=== PATIENT | female | born 1955 | race Caucasian/White ===

== ENCOUNTER 2017-06-17 07:57 | Emergency (ER) | payer BC ==
[2017-06-17 08:22] LABS: #Basophils 0.2 thou/uL (0.0-0.2); #Lymphocytes 0.7 thou/uL (1.20-3.40); #Monocytes 1.1 thou/uL (0.11-0.59); #Neutrophils 8.5 thou/uL (1.40-6.50); %Basophils 1.6 % (0.0-1.0); %Lymphocytes 6.4 % (21.0-51.0); %Monocytes 10.3 % (0.0-10.0); %Neutrophils 81.7 % (42.0-75.0); Hemoglobin 14.2 g/dL (12.0-16.0); Mean Corpuscular HGB CONC 34.2 g/dL (32.0-36.0); Mean Corpuscular Hemoglobin 31.8 pg (27.0-31.0); Mean Corpuscular Volume 92.9 fl (81.0-99.0); Mean Platelet Volume 6.9 fL (7.4-10.4); Platelet Count 286 thou/uL (130-400); Red Blood Cell (RBC) Count 4.48 mill/uL (4.20-5.40); White Blood Cell (WBC) Count 10.4 thou/uL (4.8-10.8)
[2017-06-17] MEDS ORDERED: Acetaminophen 500 MG TAB ONE (08:38)
[2017-06-17 08:39] LABS: ALT (SGPT) 30 U/L (8-55); AST (SGOT) 62 U/L (5-34); Albumin 4.2 g/dL (3.4-4.8); Alkaline Phosphatase 69 U/L (40-150); Anion Gap 17 mmol/L (10-20); BUN (Urea Nitrogen) 9 mg/dL (9.8-20.1); Bilirubin, Total 0.3 mg/dL (0.2-1.2); Calc. Creatinine Clearance 0 mL/min (70-130); Calcium 8.9 mg/dL (7.8-10.44); Carbon Dioxide 28 mmol/L (23-31); Chloride 85 mmol/L (98-107); Estimated GFR-MDRD 89; Globulin 3.2 g/dL (2.4-3.5); Glucose 121 mg/dL (80-115); Potassium 3.8 mmol/L (3.5-5.1); Protein, Total 7.4 g/dL (6.0-8.3); Sodium 126 mmol/L (136-145)
[2017-06-17] MEDS ORDERED: methylPREDNISolone Sod Succ/PF 125 MG/2 ML VIAL ONE (08:47)
[2017-06-17 09:00] LABS: CKMB 12.3 ng/mL (0-6.6); Troponin I 0.522 ng/mL (< 0.028)
--- NOTE | 2017-06-17 09:28 | RAD ---
CHEST 1 VIEW: Date: 06/17/17 HISTORY: Dyspnea. COMPARISON: Chest radiograph dated 11/25/15. FINDINGS: Interstitial prominence in the lung bases is similar. There appears to be lung hyperinflation and upp er lobe bullous formation. IMPRESSION: No significant change. Increased interstitial markings in the lung bases may be sequelae of scarring. There is upper lobe bullous formation and COPD. POS: [facility]
[2017-06-17] MEDS ORDERED: Piperacillin/Tazobactam 3.375 GM VIAL ONE (10:17)
[2017-06-17] MEDS ORDERED: Sodium Chloride 0.9% 100 ML ONE (10:18)
--- NOTE | 2017-06-17 10:31 | CT ---
CT ANGIOGRAM CHEST WITH CONTRAST: Date: 06/17/17 HISTORY: Dyspnea. COMPARISON: CTA from 2012. TECHNIQUE: CT angiogram of chest performed after the intravenous administration of contrast. 3D rendering provid ed. FINDINGS: No proximal segmental pulmonary arterial filling defect. Pulmonary trunk size is normal. The aortic s ize is nonaneurysmal. Superior mesenteric artery and celiac trunk are both patent. No adenopathy. There are severe emphysematous changes. A few tree-in-bud opacities within the right middle lobe, as well as within the anterior segment right upper lobe. No pneumothorax. No effusion. No acute osseous abnormality. IMPRESSION: 1. No pulmonary embolism. 2. Multifocal right upper lobe and right middle lobe pneumonia. POS: [facility]
== END 2017-06-17 10:30 | disposition short-term general hospital (02) ==
LOC: BURERS 07:57
DX: J44.0 Chronic obstructive pulmonary disease with (acute) lower respiratory infection (principal); J18.9 Pneumonia, unspecified organism; I10 Essential (primary) hypertension; F17.210 Nicotine dependence, cigarettes, uncomplicated; Z79.899 Other long term (current) drug therapy; Z79.82 Long term (current) use of aspirin
CPT/HCPCS: 36415; 71010; 71275; 80053; 82553; 83880; 84484; 85025; 85379; 87040; 93005; 96361; 96374; 96375; J2543; J2930; J7050; J7620

== ENCOUNTER 2018-05-21 10:55 | Inpatient (IN) | payer BC, MEDICARE ==
[2018-05-21 13:09] LABS: ALT (SGPT) 17 U/L (8-55); AST (SGOT) 21 U/L (5-34); Albumin 4.5 g/dL (3.4-4.8); Alkaline Phosphatase 83 U/L (40-150); Anion Gap 15 mmol/L (10-20); BUN (Urea Nitrogen) 5 mg/dL (9.8-20.1); Bilirubin, Total 0.3 mg/dL (0.2-1.2); Calc. Creatinine Clearance 0 mL/min (70-130); Calcium 9.7 mg/dL (7.8-10.44); Carbon Dioxide 30 mmol/L (23-31); Chloride 91 mmol/L (98-107); Estimated GFR-MDRD Greater than 90; Globulin 2.9 g/dL (2.4-3.5); Glucose 132 mg/dL (80-115); Protein, Total 7.4 g/dL (6.0-8.3); Sodium 133 mmol/L (136-145)
[2018-05-21 14:04] LABS: #Basophils 0.2 thou/uL (0.0-0.2); #Monocytes 0.8 thou/uL (0.11-0.59); #Neutrophils 5.5 thou/uL (1.40-6.50); %Basophils 2.4 % (0.0-1.0); %Eosinophils 0.2 % (0.0-10.0); %Lymphocytes 12.9 % (21.0-51.0); %Neutrophils 73.5 % (42.0-75.0); Hemoglobin 15.3 g/dL (12.0-16.0); Mean Corpuscular HGB CONC 35.4 g/dL (32.0-36.0); Mean Corpuscular Hemoglobin 32.2 pg (27.0-31.0); Mean Corpuscular Volume 91.1 fL (78.0-98.0); Mean Platelet Volume 6.5 fL (7.4-10.4); Platelet Count 309 thou/uL (130-400); Red Blood Cell (RBC) Count 4.74 mill/uL (4.20-5.40); White Blood Cell (WBC) Count 7.4 thou/uL (4.8-10.8)
[2018-05-21] MEDS ORDERED: PROVENTIL INHALER 6.7 G (200 INHALATIONS) INH PRN (14:24)
[2018-05-21] MEDS ORDERED: Potassium Chloride 20 MEQ TAB PO SCH (14:30)
--- NOTE | 2018-05-21 17:44 | RAD ---
CHEST TWO VIEWS: 05/21/18 Comparison is made with a 06/21/17 study. The heart is normal in size. Severe emphysematous changes are again noted. There is some basilar hazi ness and streaking, but this is presumably just fibroemphysematous change. It does not appear substan tially different than the prior study. There is nothing more focal today than before to allow a diagn osis of pneumonia. The trachea is midline. IMPRESSION: COPD with chronic changes as noted. POS: [facility]
[2018-05-21] MEDS: Cilostazol 100 MG TAB PO SCH (18:09)
[2018-05-21] MEDS ORDERED: Fluticasone Propionate Nasal Spray 16 gm Bottle NASAL SCH (18:30)
[2018-05-21 18:42] VITALS: BMI 23.7
[2018-05-21] MEDS ORDERED: Oseltamivir 75 MG CAP ONE (20:03)
[2018-05-21] MEDS: Oseltamivir 75 MG CAP PO SCH (20:33)
[2018-05-21] MEDS: Metoprolol Tartrate 25 MG TAB PO SCH (20:34)
[2018-05-21] MEDS: Simvastatin 40 MG TAB PO SCH (20:34)
[2018-05-22] MEDS ORDERED: Metoprolol Tartrate 5 MG/5 ML VIAL ONE (04:12)
--- NOTE | 2018-05-22 04:35 | HP ---
CHIEF COMPLAINT: Hypoxia with influenza B. HISTORY OF PRESENT ILLNESS: A 63-year-old female with underlying COPD, presented to the outpatient setting, [facility], earlier today with complaints of fever, productive cough, and increasing dyspnea present for the last 24-48 hours. A flu swab revealed that the patient has influenza B. She was notably hypoxic and thus received a breathing treatment and supplemental oxygen in the clinic. This improved her O2 sats from the 80s up to the 90s; however, upon cessation of supplemental oxygen, her O2 quickly dropped back down into the 80s. This prompted her direct admission to [facility]. The patient reports to be feeling tightness in her lungs; however, has improved respiratory status since having supplemental oxygen on the floor along with the DuoNeb breathing treatment. She did have a flu shot earlier this year, approximately 6-8 weeks ago. Denies having any known sick contacts. She has good insight into her reason for admission. PAST MEDICAL HISTORY: Hypertension, atherosclerosis, COPD, dyslipidemia. PAST SURGICAL HISTORY: Tonsillectomy, ovarian cyst removal, x2, trigger thumb repair; back surgery in September 2011; femoral stents placed to the bilateral groin in February 2012, arterial bypass in May 2013, and arterial bypass to the right lower extremity in April 2015. FAMILY HISTORY: Father is with history of congestive heart failure. Mother is with history of pancreatic cancer. SOCIAL HISTORY: The patient is a smoker. Denies frequent EtOH use. Denies illicit drug use. ALLERGIES: INCLUDE LEVAQUIN. CURRENT MEDICATIONS: Include; 1. Aspirin 81 mg p.o. daily. 2. Metoprolol 50 mg p.o. b.i.d. 3. Amlodipine 5 mg p.o. daily. 4. Anoro Ellipta 1 inhalation daily, 62.5/25 mcg per inhalation. 5. Simvastatin 40 mg p.o. daily. 6. Cilostazol 100 mg b.i.d.. 7. ProAir inhaler 2 inhalations q.4 hours p.r.n. 8. DuoNeb 3 mL inhaled q.6 hours p.r.n. REVIEW OF SYSTEMS: GENERAL: The patient complains of fever. EAR, NOSE, AND THROAT: Complains of nasal drainage. CARDIOVASCULAR: Denies chest pain. RESPIRATORY: Complains of cough and shortness of breath. GASTROINTESTINAL: Denies abdominal pain, nausea, vomiting, or diarrhea. GENITOURINARY: Denies dysuria. MUSCULOSKELETAL: Denies joint pain. DERM: Denies rash. NEURO: Denies headache. LABORATORY DATA: WBC is 7.4, H and H are 15.3 and 43.2. Sodium 133, potassium 3.0, BUN is 5, creatinine is 0.65. GFR is greater than 90. Glucose 132. LFTs are normal. IMAGING: Chest x-ray is pending. PHYSICAL EXAMINATION: VITAL SIGNS: Temperature is 98.6, pulse is 88, respiratory rate is 20, oxygen is 97% on 3 L, blood pressure 170/80. GENERAL: The patient is moderately ill appearing, in no acute distress. HEAD, EYES, EARS, NOSE, AND THROAT: Normocephalic, atraumatic. Extraocular muscles are intact bilaterally. Moist mucous membranes. NECK: Supple with no lymphadenopathy. CARDIOVASCULAR: Regular rate and rhythm. Normal S1 and S2. No murmurs, rubs, or gallops. RESPIRATORY: Prolonged expiratory phase with coarse breath sounds and diminished breath sounds. EXTREMITIES: No clubbing, cyanosis, or edema. SKIN: No rash. NEUROLOGIC: Nonfocal with cranial nerves II through XII grossly intact. ASSESSMENT AND PLAN: 1. Hypoxia. We will supplement oxygen to keep the patient's saturations greater than 92%. She has arranged home oxygen via the [facility] when able to transition home. No leukocytosis. CXR reading is pending. 2. Influenza B. We will provide Tamiflu 75 mg p.o. b.i.d. x5 days. 3. Chronic obstructive pulmonary disease. We will be giving the patient's usual medications with scheduled neb treatments. 4. Hypertension. We will resume the patient's home blood pressure medications. 5. Hyperlipidemia. We will resume the patient's statin. 6. Hypokalemia. We will start the patient on a daily potassium supplement 20 mEq p.o. daily. Follow up her BMP in the morning. 7. Start on prophylaxis. We will provide Lovenox daily injection for deep vein thrombosis prophylaxis along with famotidine for gastrointestinal prophylaxis. Job ID: [id number] [facility]
[2018-05-22 05:17] LABS: Anion Gap 14 mmol/L (10-20); BUN (Urea Nitrogen) 7 mg/dL (9.8-20.1); Calc. Creatinine Clearance 85 mL/min (70-130); Calcium 9.1 mg/dL (7.8-10.44); Carbon Dioxide 29 mmol/L (23-31); Chloride 95 mmol/L (98-107); Estimated GFR-MDRD Greater than 90; Glucose 93 mg/dL (80-115); Potassium 3.8 mmol/L (3.5-5.1); Sodium 134 mmol/L (136-145)
[2018-05-22] MEDS ORDERED: Oseltamivir 75 MG CAP ONE ×2 (07:20→20:45)
[2018-05-22] MEDS: Enoxaparin Sodium 30 MG/0.3 ML SYRINGE SC SCH (08:24)
[2018-05-22] MEDS: Fluticasone Propionate Nasal Spray 16 gm Bottle NASAL SCH (08:25)
[2018-05-22] MEDS: Oseltamivir 75 MG CAP PO SCH ×2 (08:26→21:15)
[2018-05-22] MEDS: Potassium Chloride 20 MEQ TAB PO SCH (08:26)
[2018-05-22] MEDS: Losartan Potassium 50 MG TAB PO SCH (08:27)
[2018-05-22] MEDS: Cilostazol 100 MG TAB PO SCH ×2 (08:27→18:48)
[2018-05-22] MEDS: Hydrochlorothiazide 25 MG TAB PO SCH (08:27)
[2018-05-22] MEDS: Famotidine 20 MG TAB PO SCH (08:27)
[2018-05-22] MEDS: Metoprolol Tartrate 25 MG TAB PO SCH ×2 (08:27→21:15)
[2018-05-22] MEDS: Simvastatin 40 MG TAB PO SCH (21:15)
[2018-05-23 05:06] LABS: Hemoglobin 13.4 g/dL (12.0-16.0); Platelet Count 275 thou/uL (130-400)
[2018-05-23 05:30] LABS: Calc. Creatinine Clearance 83 mL/min (70-130); Estimated GFR-MDRD Greater than 90
[2018-05-23] MEDS ORDERED: guaiFENesin/DM ER PO SCH (09:00)
[2018-05-23] MEDS: Fluticasone Propionate Nasal Spray 16 gm Bottle NASAL SCH (09:25)
[2018-05-23] MEDS: Potassium Chloride 20 MEQ TAB PO SCH (09:26)
[2018-05-23] MEDS: Metoprolol Tartrate 25 MG TAB PO SCH ×2 (09:26→20:49)
[2018-05-23] MEDS: Enoxaparin Sodium 30 MG/0.3 ML SYRINGE SC SCH (09:26)
[2018-05-23] MEDS: Losartan Potassium 50 MG TAB PO SCH (09:27)
[2018-05-23] MEDS: Famotidine 20 MG TAB PO SCH (09:27)
[2018-05-23] MEDS: Cilostazol 100 MG TAB PO SCH ×2 (09:27→18:30)
[2018-05-23] MEDS: Hydrochlorothiazide 25 MG TAB PO SCH (09:28)
[2018-05-23] MEDS ORDERED: Oseltamivir 75 MG CAP ONE ×2 (09:31→20:40)
[2018-05-23] MEDS: Oseltamivir 75 MG CAP PO SCH ×2 (09:32→20:49)
[2018-05-23] MEDS: guaiFENesin ER 600 MG TAB PO SCH ×2 (10:56→20:49)
--- NOTE | 2018-05-23 20:16 | RAD ---
CHEST TWO VIEWS: Date: 05-23-18 Comparison: 05-21-18 FINDINGS: COPD is present as usual. There are no effusions or major lobar infiltrates present. Some minor promi nence of basilar lung markings is not substantially different than before. At most, there may be slig htly less lingular streaking than previously, but this is a borderline finding at best. IMPRESSION: COPD with minimal changes since 05-21. POS: [facility]
[2018-05-23] MEDS: Simvastatin 40 MG TAB PO SCH (20:49)
[2018-05-24] MEDS ORDERED: Oseltamivir 75 MG CAP ONE ×2 (08:15→20:35)
[2018-05-24] MEDS: Cilostazol 100 MG TAB PO SCH ×2 (08:39→18:26)
[2018-05-24] MEDS: Famotidine 20 MG TAB PO SCH (08:39)
[2018-05-24] MEDS: Oseltamivir 75 MG CAP PO SCH ×2 (08:40→20:47)
[2018-05-24] MEDS: Enoxaparin Sodium 30 MG/0.3 ML SYRINGE SC SCH (08:41)
[2018-05-24] MEDS: guaiFENesin ER 600 MG TAB PO SCH ×2 (08:41→20:46)
[2018-05-24] MEDS: Potassium Chloride 20 MEQ TAB PO SCH (08:41)
[2018-05-24] MEDS: Fluticasone Propionate Nasal Spray 16 gm Bottle NASAL SCH (08:42)
[2018-05-24] MEDS: Metoprolol Tartrate 25 MG TAB PO SCH ×2 (08:55→20:46)
[2018-05-24] MEDS: Hydrochlorothiazide 25 MG TAB PO SCH (08:55)
[2018-05-24] MEDS: Losartan Potassium 50 MG TAB PO SCH (08:55)
[2018-05-24] MEDS: Simvastatin 40 MG TAB PO SCH (20:47)
[2018-05-24] MEDS ORDERED: Metoprolol Tartrate 25 MG TAB PO SCH (21:00)
[2018-05-25 05:08] LABS: Hemoglobin 13.5 g/dL (12.0-16.0); Platelet Count 276 thou/uL (130-400)
[2018-05-25 05:14] LABS: Calc. Creatinine Clearance 84 mL/min (70-130); Estimated GFR-MDRD Greater than 90
[2018-05-25 06:11] VITALS: BP 122/70; TEMP 98
[2018-05-25] MEDS: Fluticasone Propionate Nasal Spray 16 gm Bottle NASAL SCH (08:17)
[2018-05-25] MEDS: Losartan Potassium 50 MG TAB PO SCH (08:18)
[2018-05-25] MEDS: Metoprolol Tartrate 25 MG TAB PO SCH (08:19)
[2018-05-25] MEDS: Hydrochlorothiazide 25 MG TAB PO SCH (08:19)
[2018-05-25] MEDS: guaiFENesin ER 600 MG TAB PO SCH (08:19)
[2018-05-25] MEDS: Cilostazol 100 MG TAB PO SCH (08:20)
[2018-05-25] MEDS: Potassium Chloride 20 MEQ TAB PO SCH (08:20)
[2018-05-25] MEDS: Famotidine 20 MG TAB PO SCH (08:20)
[2018-05-25] MEDS: Enoxaparin Sodium 30 MG/0.3 ML SYRINGE SC SCH (08:21)
[2018-05-25] MEDS ORDERED: Oseltamivir 75 MG CAP ONE (10:06)
[2018-05-25] MEDS: Oseltamivir 75 MG CAP PO SCH (10:10)
--- NOTE | 2018-05-26 08:27 | DIS ---
DATE OF ADMISSION: 05/21/2018 DATE OF DISCHARGE: 05/25/2018 ADMISSION DIAGNOSIS: Influenza B with hypoxia. DISCHARGE DIAGNOSIS: Influenza B with hypoxia. BRIEF SUMMARY OF HISTORY AND PHYSICAL: The patient is a 63-year-old white female with a history of chronic bronchitis, who does smoke, who presented to the office on the day of admission with a complaint of fever, productive cough, and increasing dyspnea for the last 24 to 48 hours. She had a flu swab that showed influenza B. She noticed that she was hypoxic by staff, O2 saturation in the 80s on room air. Due to the patient's chronic bronchitis, her hypoxia, and recent diagnosis of influenza B, she was admitted to the hospital for treatment. BRIEF SUMMARY OF HOSPITAL COURSE: The patient was admitted to floor. She was placed on Tamiflu as well as her routine medications including blood pressure medications, metoprolol and amlodipine. She was continued on her long-term inhaler plus ProAir and oxygen as needed. Over the next several days, her hypoxia decreased. At the time of discharge, her O2 saturation was in the low 90s on room air. She did desaturate with any activity, which abruptly improved with any rest back into the 90s. The patient felt well enough to be discharged to home, and thus, she was discharged with followup in [address] Cabrera, her primary care physician. DISCHARGE MEDICATIONS: 1. Aspirin 81 mg daily. 2. Metoprolol 50 mg p.o. b.i.d. 3. Amlodipine 5 mg daily. 4. Anoro Ellipta 1 inhalation daily. 5. Simvastatin 40 mg daily. 6. Pletal 100 mg p.o. b.i.d. 7. ProAir 2 inhalations q.4 hours p.r.n. cough and shortness of breath. 8. She is on DuoNeb q.6 hours p.r.n. shortness of breath. 9. She will continue Tamiflu 75 mg p.o. b.i.d. for a full 5-day course. 10. Guaifenesin as needed [id number]. 11. Potassium chloride 10 mEq daily due to hypokalemia found on admission. DISCHARGE ACTIVITY: Will be as tolerated. She was told not to go to work until she follows with Dr. Cabrera in 2 to 3 days. DIET: Will be a low-sodium/low-salt diet. Job ID: [id number]
== END 2018-05-25 16:38 | disposition home or self-care (01) | DRG 153 ==
LOC: BURMED 10:55
PROVIDERS: ADMIT Family Medicine; ATTEND Family Medicine
DX: J11.1 Influenza due to unidentified influenza virus with other respiratory manifestations (principal); J44.1 Chronic obstructive pulmonary disease with (acute) exacerbation; F17.210 Nicotine dependence, cigarettes, uncomplicated; E87.6 Hypokalemia; I10 Essential (primary) hypertension; E78.5 Hyperlipidemia, unspecified; I70.90 Unspecified atherosclerosis; Z79.82 Long term (current) use of aspirin
CPT/HCPCS: 36415; 71046; 80048; 80053; 82565; 85014; 85018; 85025; 85049; 87040; 94640; 94664; G8978-GP-CI; G8979-GP-CH; J1650; J7620